=== PATIENT | female | born 1980 | race Caucasian/White ===

== ENCOUNTER 2019-10-25 00:49 | Inpatient (IN) | payer SELFPAY ==
[2019-10-25] VITALS (7 sets, daily range): BP systolic 94–104; BP diastolic 51–65
[~2019-10-25] VITALS: Ht 157.5 cm; Wt 67.1 kg
[2019-10-25] MEDS ORDERED: SODIUM CHLORIDE 0.9% 1,000 ML IV ONE (01:04)
[2019-10-25] MEDS ORDERED: DILTIAZEM HCL 5MG/ML 5ML VIAL IV ONE (01:15)
[2019-10-25 01:37] LABS: CHLORIDE 105 mEq/L (98-107)
[2019-10-25 01:39] LABS: BASOPHILS % 0.3 % (0.0-2.0); EOSINOPHILS % 0.9 % (0.0-5.0); HEMATOCRIT. 40.4 % (36.0-48.0); HEMOGLOBIN. 13.7 g/dL (12.0-16.0); LYMPHOCYTES % 23.4 % (20.0-50.0); MEAN CORPUSCULAR HEMOGLOBIN 28.6 pg (28.0-32.0); MEAN CORPUSCULAR VOLUME 84.5 fL (81.0-99.0); MEAN PLATELET VOLUME 9.4 fl (7.4-10.4); NEUTROPHILS % 69.4 % (40.0-76.0); PLATELET 325 x1000/uL (130-400); RED BLOOD CELL COUNT 4.78 mill/uL (4.2-5.4); RED CELL DISTRIBUTION WIDTH 14.2 % (11.6-14.6)
[2019-10-25 01:41] LABS: ETHANOL BLOOD < 10 mg/dL
[2019-10-25 01:49] LABS: D-DIMER 0.21 mg/L FEU (<0.50); PARTIAL THROMBOPLASTIN TIME 27.2 sec (23.4-31.0)
[2019-10-25] MEDS ORDERED: DOCUSATE SODIUM 100MG CAPSULE PO PRN (05:00)
[2019-10-25] MEDS ORDERED: ACETAMINOPHEN 325MG TABLET PO PRN (05:00)
[2019-10-25] MEDS ORDERED: ONDANSETRON HCL 4MG/2ML INJ IV PRN (05:00)
[2019-10-25] MEDS ORDERED: CLONIDINE 0.1MG TABLET PO PRN (05:00)
[2019-10-25] MEDS ORDERED: HYDROCODONE/ACETAMINOPHEN 5/325MG TABLET PO PRN (05:00)
[2019-10-25] MEDS ORDERED: MORPHINE SULFATE 2 MG/ML CPJ (NOT FOR IM USE) IV PRN (05:00)
[2019-10-25] MEDS ORDERED: GUAIFENESIN 200MG/10ML SUGAR FREE UDC PO PRN (05:00)
[2019-10-25] MEDS ORDERED: MAGNESIUM/ALUMINUM HYDROXIDE/SIMETHICONE 30ML UDC PO PRN (05:00)
[2019-10-25 06:38] LABS: CREATINE KINASE MB FRACTION 1.5 ng/mL (0.5-3.6)
[2019-10-25] MEDS: METOPROLOL TARTRATE 25MG TABLET PO SCH ×2 (10:38→20:44)
[2019-10-25] MEDS: MULTIVITAMINS,THER W-MINERALS TABLET PO SCH (10:38)
[2019-10-25] MEDS: ASPIRIN 81MG EC TABLET PO SCH (10:38)
[2019-10-25] MEDS: ENOXAPARIN 40MG/0.4ML SYR SUBCUT SCH (10:39)
[2019-10-25 16:00] LABS: CREATINE KINASE 82 IU/L (26-192)
[2019-10-25 16:01] LABS: CREATINE KINASE MB FRACTION 1.4 ng/mL (0.5-3.6)
[2019-10-26] VITALS: BP 92/57
[2019-10-26 04:00] VITALS: BP 93/50
[2019-10-26 07:33] LABS: BASOPHILS % 0.6 % (0.0-2.0); HEMATOCRIT. 39.9 % (36.0-48.0); HEMOGLOBIN. 13.4 g/dL (12.0-16.0); LYMPHOCYTES % 41.1 % (20.0-50.0); MEAN CORPUSCULAR HEMOGLOBIN 28.3 pg (28.0-32.0); MEAN CORPUSCULAR VOLUME 84.3 fL (81.0-99.0); MEAN PLATELET VOLUME 9.5 fl (7.4-10.4); MONOCYTES % 8.6 % (2.0-8.0); NEUTROPHILS % 47.7 % (40.0-76.0); PLATELET 300 x1000/uL (130-400); RED BLOOD CELL COUNT 4.73 mill/uL (4.2-5.4); RED CELL DISTRIBUTION WIDTH 14.2 % (11.6-14.6)
[2019-10-26 08:00] VITALS: BP_SYST 124; BP_SYST 98; BP_DIAS 42; BP_DIAS 84
[2019-10-26 08:04] LABS: CHLORIDE 109 mEq/L (98-107)
[2019-10-26 08:13] LABS: LDL CHOLESTEROL 103 mg/dL (5-100)
[2019-10-26 08:14] LABS: HDL CHOLESTEROL 38 mg/dL (40-59); T4 FREE 1.37 ng/dL (0.76-1.46)
[2019-10-26] MEDS: METOPROLOL TARTRATE 25MG TABLET PO SCH ×2 (09:00→09:05)
[2019-10-26] MEDS: MULTIVITAMINS,THER W-MINERALS TABLET PO SCH (09:13)
[2019-10-26] MEDS: ASPIRIN 81MG EC TABLET PO SCH (09:13)
[2019-10-26] MEDS: ENOXAPARIN 40MG/0.4ML SYR SUBCUT SCH (09:14)
[2019-10-26 12:00] VITALS: BP 95/52
[2019-10-26 13:31] VITALS: BP 95/52
[2019-10-26] MEDS ORDERED: ATORVASTATIN CALCIUM 10MG TABLET PO SCH (21:00)
== END 2019-10-26 14:06 | disposition home or self-care (01) | DRG 201 ==
LOC: ER 00:49 → ENRESERV 08:11 → 5WST 09:18
PROVIDERS: ADMIT Hospitalist; ATTEND Hospitalist
DX: I47.1 Supraventricular tachycardia (principal)
CPT/HCPCS: 36415; 71045; 80061; 80320; 82550; 82553; 83880; 84439; 84443; 84484; 85379; 93005; 93306; 93970; 99291; J1650; J3490; J7030; G0480